=== PATIENT | female | born 1955 | race Caucasian/White ===

== ENCOUNTER 2018-03-27 08:28 | Day surgery (SDC) | payer BC ==
[~2018-03-27] VITALS: Ht 160 cm; Wt 61.7 kg
[~2018-03-27 08:28] MED LIST: ALTACE10 MG PO; CALCIUM + D3 E1 EACH PO; CARDURA1 M1 PO; GLUCAGON1 MG IM; INSULIN PUMP MC; LIPITOR10 MG PO; LO-DOSE ASPIRIN81 M1 PO; MICROZIDE12.5 M1 PO; SYMLINPEN1500 MCG/1 SC; VITAMIN D32000 UNI1 PO
[2018-03-27 08:50] VITALS: BP 148/67
[2018-03-27 12:00] VITALS: BP 141/75
[2018-03-27 12:25] VITALS: BP 101/54
[2018-03-27 12:51] VITALS: BP 159/74
== END 2018-03-27 12:45 | disposition home or self-care (01) ==
LOC: SDC 08:28
PROVIDERS: Obstetrics & Gynecology
PROC: 0UB98ZX Excision of Uterus, Via Natural or Artificial Opening Endoscopic, Diagnostic (ICD-10-PCS; principal; 2018-03-27)
DX: N84.0 Polyp of corpus uteri (principal); I10 Essential (primary) hypertension; E11.9 Type 2 diabetes mellitus without complications; E78.00 Pure hypercholesterolemia, unspecified; Z79.82 Long term (current) use of aspirin; Z79.4 Long term (current) use of insulin
CPT/HCPCS: 82948; 88305; J0690; J1100; J1885; J2250; J2405; J3010